=== PATIENT | female | born 1985 | race African-American/Black ===

== ENCOUNTER → 2018-05-25 | Emergency (ER) | payer SELFPAY ==
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
== END | disposition left against medical advice (07) ==
LOC: EMR 13:24
DX: Z53.21 Procedure and treatment not carried out due to patient leaving prior to being seen by health care provider (principal)